=== PATIENT | male | born 1950 | race Caucasian/White ===

== ENCOUNTER 2017-03-22 16:08 | Outpatient (CLI) | payer MEDICARE, BC ==
--- NOTE | 2017-03-22 19:26 | SJPRAD ---
PA CHEST X-RAY WITH TWO VIEWS RIGHT SIDED RIBS 03/22/17 FINDINGS: The cardiac silhouette and pulmonary vasculature are within normal limits. The lungs are clear. No p neumothorax or pleural effusion is seen. Osseous structures appear intact and no right sided rib fra cture is visualized. IMPRESSION: 1. No right sided rib fracture visualized. 2. No acute cardiopulmonary process. POS: H
== END 2017-03-22 16:09 | disposition home or self-care (01) ==
LOC: MWLC RAD 16:08
PROVIDERS: ATTEND Internal Medicine Geriatric Medicine
DX: R07.81 Pleurodynia (principal)

== ENCOUNTER 2021-12-01 14:43 | Outpatient (CLI) | payer MEDICARE, BC | END 2021-12-01 14:44 | disposition home or self-care (01) | LOC: SCSRAD 14:43 | PROVIDERS: ATTEND Family Medicine | DX: M25.532 Pain in left wrist (principal) ==

== ENCOUNTER 2022-01-05 13:43 | Outpatient (CLI) | payer MEDICARE, BC | END 2022-01-05 13:44 | disposition home or self-care (01) | LOC: SCSRAD 13:43 | PROVIDERS: ATTEND Family Medicine | DX: M79.674 Pain in right toe(s) (principal); S92.511A Displaced fracture of proximal phalanx of right lesser toe(s), initial encounter for closed fracture ==

== ENCOUNTER 2023-03-28 14:56 | Outpatient (CLI) | payer MEDICARE, BC | END 2023-03-28 14:57 | disposition home or self-care (01) | LOC: BICMAMMO 14:56 | PROVIDERS: ATTEND Internal Medicine Rheumatology | DX: M81.0 Age-related osteoporosis without current pathological fracture (principal); M85.851 Other specified disorders of bone density and structure, right thigh; M85.852 Other specified disorders of bone density and structure, left thigh | CPT/HCPCS: 77080 ==

== ENCOUNTER 2024-07-11 13:47 | Outpatient (CLI) | payer MEDICARE | END 2024-07-11 13:48 | disposition home or self-care (01) | LOC: SCSRAD 13:47 | PROVIDERS: ATTEND Family Medicine | DX: S80.01XA Contusion of right knee, initial encounter (principal); M17.11 Unilateral primary osteoarthritis, right knee ==

== ENCOUNTER 2025-05-23 13:35 | Outpatient (CLI) | payer MEDICARE | END 2025-05-23 13:36 | disposition home or self-care (01) | LOC: SCSMRI 13:35 | PROVIDERS: ATTEND Nurse Practitioner Family | DX: R07.89 Other chest pain (principal); Z98.890 Other specified postprocedural states | CPT/HCPCS: 71550 ==